=== PATIENT | male | born 1965 | race Two or more races ===

== ENCOUNTER 2021-10-15 06:08 | Inpatient (IN) | payer OTHER ==
[2021-09-24 13:19] VITALS: BMI 29.8
[2021-10-15] MEDS ORDERED: PROPOFOL 20 ML ONE ×6 (07:32→11:01)
[2021-10-15] MEDS ORDERED: MIDAZOLAM HCL 2 MG/2 ML SINGLE DOSE VIAL ONE ×2 (07:33→08:51)
[2021-10-15] MEDS ORDERED: BUPIVACAINE HCL 100 ML ONE (07:35)
[2021-10-15] MEDS ORDERED: ROPIVACAINE HCL/PF 100 MG/20 ML VIAL ONE (07:45)
[2021-10-15] MEDS ORDERED: ceFAZolin SODIUM 1 GM VIAL ONE (08:00)
[2021-10-15] MEDS ORDERED: VANCOMYCIN 1,000 MG VIAL (RESTRICTED TO ID ONLY) ONE (08:00)
[2021-10-15] MEDS ORDERED: TRANEXAMIC ACID 1000 MG/10 ML VIAL ONE ×2 (08:01→08:25)
[2021-10-15] MEDS ORDERED: KETOROLAC TROMETHAMINE 30 MG/1 ML VIAL ONE (08:26)
[2021-10-15] MEDS ORDERED: ONDANSETRON 4 MG/2 ML VIAL ONE (08:26)
[2021-10-15] MEDS ORDERED: DEXAMETHASONE SOD PHOSPHATE 4 MG/1 ML VIAL ONE (08:26)
[2021-10-15] MEDS ORDERED: ACETAMINOPHEN INJECTION 100 ML IVPB ONE (11:47)
[2021-10-15] MEDS ORDERED: FENTANYL CITRATE/PF 50 MCG/ML VIAL ONE ×2 (11:47→12:17)
[2021-10-15] MEDS ORDERED: MAG HYDROX/AL HYDROX/SIMETH 30 ML UNIT-DOSE CUP PO PRN (11:54)
[2021-10-15] MEDS ORDERED: MAGNESIUM HYDROX 2400MG/30ML ORAL SUSPENSION 30 ML CUP PO PRN (11:54)
[2021-10-15] MEDS ORDERED: ONDANSETRON 4 MG/2 ML VIAL IVPUSH PRN (11:54)
[2021-10-15] MEDS: ACETAMINOPHEN 1000 MG/100 ML BAG IVPB ONE (11:55)
[2021-10-15] MEDS ORDERED: LACTATED RINGERS SOLUTION 1,000 ML IV SCH (12:00)
[2021-10-15] MEDS ORDERED: oxyCODONE HCL 5 MG TABLET PO PRN (12:22)
[2021-10-15] MEDS: oxyCODONE HCL 5 MG TABLET PO PRN ×2 (12:40→17:16)
[2021-10-15] MEDS ORDERED: ALBUTEROL SO4 HFA INHALER IH PRN (14:00)
[2021-10-15] MEDS: CEFAZOLIN SODIUM 2 GM in DEXTROSE 5%-WATER 100 ML IVPB SCH ×2 (15:44→22:14)
[2021-10-15] MEDS: KETOROLAC TROMETHAMINE 30 MG/1 ML VIAL IVPUSH SCH ×2 (17:28→18:06)
[2021-10-15] MEDS: CELECOXIB 200 MG CAPSULE PO SCH (22:13)
[2021-10-15] MEDS: ASPIRIN COATED 81 MG TABLET.EC PO SCH (22:13)
[2021-10-15] MEDS: SENNOSIDES/DOCUSATE COMBO (SENNA PLUS) TABLET (UD) PO SCH (22:14)
[2021-10-15] MEDS: oxyCODONE HCL 10 MG SUSTAINED ACTING TABLET PO SCH (23:15)
[2021-10-16] MEDS: oxyCODONE HCL 5 MG TABLET PO PRN ×5 (02:42→21:56)
[2021-10-16] MEDS: CEFAZOLIN SODIUM 2 GM in DEXTROSE 5%-WATER 100 ML IVPB SCH (04:07)
[2021-10-16 08:04] LABS: HEMATOCRIT 39.3 % (35.4-49); HEMOGLOBIN 13.4 G/dL (11.7-16.9); MCH 32.1 pg (25.7-33.7); MCHC 34.2 g/dl (32.0-35.9); MEAN PLT VOLUME 9.9 fl (7.5-11.1); PLATELET COUNT 241.8 10^3/uL (134-434); RBC 4.18 10^6/uL (4.00-5.60); RDW 13.6 % (11.9-15.9); WHITE BLOOD COUNT 10.3 10^3/uL (4.0-10.8)
[2021-10-16 08:12] LABS: CALCIUM 8.7 mg/dl (8.5-10); CREATININE 0.9 mg/dl (0.55-1.3)
[2021-10-16] MEDS: oxyCODONE HCL 10 MG SUSTAINED ACTING TABLET PO SCH ×2 (09:20→21:56)
[2021-10-16] MEDS: SENNOSIDES/DOCUSATE COMBO (SENNA PLUS) TABLET (UD) PO SCH ×2 (09:20→21:56)
[2021-10-16] MEDS: ASPIRIN COATED 81 MG TABLET.EC PO SCH ×2 (09:21→21:56)
[2021-10-16] MEDS: CELECOXIB 200 MG CAPSULE PO SCH ×2 (09:21→21:56)
[2021-10-16] MEDS: PANTOPRAZOLE 40 MG TABLET PO SCH (09:21)
[2021-10-16 09:46] LABS: ALBUMIN 3.5 g/dl (3.4-5.0); BILIRUBIN,TOTAL 0.6 mg/dl (0.2-1); TOT PROT 6.3 g/dl (6.4-8.2)
[2021-10-16 09:47] LABS: CHOLESTEROL 193 mg/dl (50-200); HDL CHOLESTEROL 33 mg/dl (40-60); LDL CHOLESTEROL (ONLY DFH) 124 mg/dl (5-100); TRIGLYCERIDES 181 mg/dl (0-150)
[2021-10-16 09:49] LABS: BILIRUBIN,DIRECT 0.1 mg/dL (0.0-0.2)
[2021-10-17] MEDS: oxyCODONE HCL 5 MG TABLET PO PRN ×2 (02:15→06:10)
[2021-10-17 06:32] VITALS: TEMP 98.8
[2021-10-17] MEDS: ACETAMINOPHEN 1000 MG/100 ML BAG IVPB ONE (07:08)
[2021-10-17 08:10] LABS: ALBUMIN 3.3 g/dl (3.4-5.0); BILIRUBIN,TOTAL 0.8 mg/dl (0.2-1); CALCIUM 8.3 mg/dl (8.5-10); CREATININE 0.8 mg/dl (0.55-1.3); TOT PROT 6.2 g/dl (6.4-8.2)
[2021-10-17 08:58] LABS: BASO % 0.3 % (0-2.0); EOS % 0.3 % (0-4.5); HEMATOCRIT 36.1 % (35.4-49); HEMOGLOBIN 12.2 GM/dL (11.7-16.9); LYMPH % 17.8 % (8-40); MCH 31.5 pg (25.7-33.7); MCHC 33.9 g/dl (32.0-35.9); MEAN CELL VOLUME 93.1 fl (80-96); MEAN PLT VOLUME 10.1 fl (7.5-11.1); MONO % 11.2 % (3.8-10.2); NEUT % 70.4 % (42.8-82.8); PLATELET COUNT 188 10^3/uL (134-434); RBC 3.88 M/mm3 (4.00-5.60); RDW 13.5 % (11.9-15.9); WHITE BLOOD COUNT 9.4 K/mm3 (4.0-10.0)
[2021-10-17 09:14] VITALS: BP 130/66; PULSE 82; RESP 19
[2021-10-17] MEDS: PANTOPRAZOLE 40 MG TABLET PO SCH (09:15)
[2021-10-17] MEDS: SENNOSIDES/DOCUSATE COMBO (SENNA PLUS) TABLET (UD) PO SCH (09:16)
[2021-10-17] MEDS: CELECOXIB 200 MG CAPSULE PO SCH (09:16)
[2021-10-17] MEDS: oxyCODONE HCL 10 MG SUSTAINED ACTING TABLET PO SCH (09:16)
[2021-10-17] MEDS: ASPIRIN COATED 81 MG TABLET.EC PO SCH (09:16)
== END 2021-10-17 11:56 | disposition home or self-care (01) | DRG 301 ==
LOC: FASUSAT 06:08 → FM/S 13:22 → FASUSAT 10-16 16:11 → FM/S 10-16 16:11
PROVIDERS: ADMIT Orthopaedic Surgery Orthopaedic Surgery of the Spine; ATTEND Orthopaedic Surgery Orthopaedic Surgery of the Spine
PROC: 0SR903Z Replacement of Right Hip Joint with Ceramic Synthetic Substitute, Open Approach (ICD-10-PCS; principal; 2021-10-15 08:51)
DX: M16.11 Unilateral primary osteoarthritis, right hip (principal); E78.5 Hyperlipidemia, unspecified
CPT/HCPCS: 36415; 73502-TC-RT-FY; 80048; 80053; 80061; 80076; 83036; 85025; 85027; 88305-TC; 88311-TC; 94760; 97010-GP; 97116-GP; 97162-GP